=== PATIENT | female | born 1940 | race Caucasian/White ===

== ENCOUNTER 2025-01-29 17:59 | Emergency (ER) | payer MEDICARE, SELFPAY ==
[2025-01-29 18:23] VITALS: BP 200/85; PULSE 76; RESP 18; TEMP 36.9; O2SAT 98
--- NOTE | 2025-01-29 18:34 | CRLHL7_ITS ---
For Patients: As a result of the Century Cures Act, medical imaging exams and procedure reports are released immediately into your electronic medical record. You may view this report before your referring provider. If you have questions, please contact your health care provider. Indication: Balance issues, vision changes Technique: Noncontrast CT through the head with multiplanar reformats Comparison: None Findings: Brain: No acute hemorrhage. No acute infarct. No significant mass effect or midline shift. No gross evidence of a mass lesion or cerebral edema. Moderate chronic senescent disease. Ventricles: No acute abnormality appreciated. Orbits, sinuses, mastoids: No acute abnormality appreciated. Calvarium and soft tissues: No acute abnormality appreciated. Impression: No acute abnormality appreciated. Please note that all CT scans at this facility use dose modulation, iterative reconstruction, and/or weight-based dosing when appropriate to reduce radiation dose to as low as reasonably achievable. Dictated by Stephan Dye MD @ 01/29/2025 7:51:28 PM (Electronically Signed)
--- NOTE | 2025-01-29 18:38 | ED_ITS ---
HPI - General Adult General Time Seen by Provider: 18:38 Date Seen: 01/29/25 Chief complaint: Dizziness/Vertigo Stated complaint: Strips in vision, tipsy, dizzy Time Seen by Provider: 01/29/25 18:36 Source: patient, RN notes reviewed and old records reviewed Mode of arrival: ambulatory Limitations: no limitations History of Present Illness HPI narrative: This 84-year-old female is ambulatory into the ER with concern of an episode that happened last night. She saw little white strips are diagonal lying on a background, states she saw them with both eyes last night. When this happened, she was feeling unsteady, wobbly, had to hang on to walk. She noticed this may be around 9 or 930, sat up in her craft room chair tell about 10 30 and then went to bed. She did wake up multiple times the night to use the restroom, symptoms were gone. She had glaucoma laser surgery December 16, went to the eye doctor today. She went to Dr. Rollins in [place], he reassured her that there was nothing with her eyes. She could not get into her primary care provider until Monday. She is asymptomatic at this time, does not feel unsteady with her gait, no dizziness, no visual changes. She has hypertension, baseline takes amlodipine 2.5 mg and atenolol 25 mg. Blood pressure reviewing clinic visit show 0132/70, 138/70, 152/72, 128/64. Last blood pressure check was on August 12. She did not feel any sense of palpitation or irregular heartbeat but when this was happening she states she felt a little chest heaviness, she believes she was probably just worried and anxious. Her chart shows hypertension, varicose veins, hyperlipidemia, cataracts, chronic kidney disease stage 3. Patient has no headache with these symptoms. No history of migraine headaches. Related Data Home Medications ?Medication ?Instructions ?Recorded ?Confirmed amlodipine 2.5 mg tablet 2.5 mg PO DAILY 01/29/25 atenolol 25 mg tablet 25 mg PO DAILY 01/29/2501/09 Allergies Allergy/AdvReac Type Severity Reaction Status Date / Time No Known Drug Allergies Allergy Verified 01/29/25 19:41 Review of Systems Status of ROS: Reports: 6 or more systems reviewed and unremarkable except as noted in History and below PFSH PFSH Social History Smoking Status: Never smoker How often do you have a drink containing alcohol: never AUDIT-C Alcohol total score: 0 Non-prescribed substance use: denies use Exam Const: Vital Signs, click to edit/add: Vital Signs - 24 hr 01/29/25 18:23 Temperature 98.4 F Pulse Rate [Pulse Oximeter] 76 Respiratory Rate 18 Blood Pressure [Ri ght Upper Arm] 200/85 H Pulse Oximetry 98 Oxygen Delivery Me thod Room Air This 84-year-old female is alert, interactive, no apparent distress. She is sitting up on the edge of the exam bed in room 6. Pupils equal round reactive, sclera clear, extraocular muscles intact, visual key normal by confrontation. Symmetric facial function, speech normal. Neck thin, no jugular venous distension, no masses or adenopathy. Lungs are clear, good air entry, no wh eezing crackles, no tachypnea, no accessory muscle use. CV regular rate and rhythm, no murmur, normal S1-S2. Her strength is 5 5 and symmetric, she has normal gait, normal light touch sensation. There is no dysmetria, no tremors. Documenting provider has reviewed patient's vital signs: yes Course Course ED Course: This 84-year-old female had a spell where she is reporting bilateral visual changes as well as feeling of unsteadiness/disequilibrium in her gait. Symptoms have resolved at this time. She is hypertensive here. Will proceed with CT imaging of her head and then CT angio of her head neck. Will obtain EKG in baseline labs. Will talk to Neurology. Reevaluation(s) Time of Reevaluation #1: 21:39 Reevaluation #1: Did review with patient my conversation with the neurologist. Plan will be to discharge to home. Her blood pressures have come down and are not elevated in longer. Her most recent was 140 over 80s. Consultations Consultation #1: Have reviewed case with stroke neurologist at [facility] Dr. Posadas. She and I did review the imaging. 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 At 84, she is already by past imminent issues with this. It becomes a non issue in the older population. Patient is not known to have migraine headaches before. She does think that this might be an or phenomenon without the migraine, that can be more common as patient's age, they can have the aura without headache. If her pressure was remaining elevated in she had ongoing symptoms, she would consider PRESS but patient's blood pressure has come down and she has not had symptoms since last night. She thinks patient can discharge to home with the caveats that if she has recurrent symptoms, to return for evaluation. Time: 21:30 Vital Signs Vital signs: Initial Vital Signs Temperature 98.4 F 01/29/25 18:23 Temperature Source Temporal Artery Scan 01/29/25 18:23 Pulse Rate 76 01/29/25 18:23 Respiratory Rate 18 01/29/25 18:23 Blood Pressure 200/85 H 01/29/25 18:23 Blood Pressure Mean 123 H 01/29/25 18:23 Blood Pressure Position Sitting 01/29/25 18:23 Pulse Oximetry 98 01/29/25 18:23 Oxygen Delivery Method Room Air 01/29/25 18:23 Vital Signs Temperature 98.4 F 01/29/25 18:23 Pulse Rate 76 01/29/25 18:23 Respiratory Rate 18 01/29/25 18:23 Blood Pressure 200/85 H 01/29/25 18:23 Pulse Oximetry 98 01/29/25 18:23 Oxygen Delivery Method Room Air 01/29/25 18:23 Temperature 98.4 F 01/29/25 18:23 Pulse Rate 76 01/29/25 18:23 Respiratory Rate 18 01/29/25 18:23 Blood Pressure 200/85 H 01/29/25 18:23 Pulse Oximetry 98 01/29/25 18:23 Oxygen Delivery Method Room Air 01/29/25 18:23 Medical Decision Making Lab Data Lab results reviewed: Yes I reviewed the patient's lab results Labs: Lab Results 01/29/25 01/29/25 Range/Units 18:50 19:06 WBC 5.94 (4.50-11.00) K/uL RBC 4.21 (4.00-5.20) m/uL Hgb 12.5 (12.0-16.0) gm/dL Hct 38.7 (33.0-51.0) % MCV 92 (80-100) fL MCH 30 (26-34) pg MCHC 32 (32-36) gm/dL RDW Coeff of Daniel 13.0 (11.5-15.5) % Plt Count 248 (140-440) K/uL Neut % (Auto) 56.2 (42.0-72.0) % Lymph % (Auto) 32.8 (20-44) % Larimer % (Auto) 7.6 (0.0-11.0) % Eos % (Auto) 2.7 (0.0-7.0) % Baso % (Auto) 0.7 (0.0-3.0) % Neut # (Auto) 3.34 (1.7-7.0) K/uL Lymph # (Auto) 1.95 (0.90-2.90) K/uL Larimer # (Auto) 0.50 (0.00-0.90) K/UL Eos # (Auto) 0.16 (0.00-0.50) K/uL Baso # (Auto) 0.04 (0.00-0.30) K/uL Abs Immat Gran (auto) 0.00 (0.00-0.30) K/uL Imm/Tot Granulo (auto) 0.0 % Sodium 137 (135-149) mmol/L Potassium 4.3 (3.6-5.1) mmol/L Chloride 99 (96-114) mmol/L Carbon Dioxide 28 (20-32) mmol/L Anion Gap 10 (7-15) mEq/L BUN 21 (7-30) mg/dL Creatinine 1.0 (0.5-1.5) mg/dL Estimated GFR 55 ml/min Glucose 107 (60-115) mg/dL Calcium 9.9 (8.4-10.6) mg/dL Total Bilirubin 0.5 (0.1-1.5) mg/dL AST 35 (12-35) U/L ALT 20 (4-35) U/L Alkaline Phosphatase 89 (40-150) U/L Troponin I < 0.01 (0.01-0.04) ng/mL C-Reactive Protein < 0.5 L (0.5-1.0) mg/dL NT-Pro-B Natriuret Pep 687 H (See Note) pg/mL Total Protein 7.7 (6.0-8.3) g/dL Albumin 4.6 (3.3-5.0) g/dL POC Creatinine 1.1 (0.6-1.3) mg/dl Imaging Data CT scan - head: Attestation: I have reviewed the pertinent imaging results. Radiologist's impression: Patient: SABA COELHO Facility:?[facility] Patient ID:?[id number] Site Patient ID:?[id number]. Site :?1940 Study:?CT-Head WITHOUT NON ACUTE-01/29/2025 7:45:50 PM Ordering Physician:?Willard Arnold Final Report: Indication: Balance issues, vision changes Technique: Noncontrast CT through the head with multiplanar reformats Comparison: None Findings: Brain: No acute hemorrhage. No acute infarct. No significant mass effect or midline shift. No gross evidence of a mass lesion or cerebral edema. Moderate chronic senescent disease. Ventricles: No acute abnormality appreciated. Orbits, sinuses, mastoids: No acute abnormality appreciated. Calvarium and soft tissues: No acute abnormality appreciated. Impression: No acute abnormality appreciated. Please note that all CT scans at this facility use dose modulation, iterative reconstruction, and/or weight-based dosing when appropriate to reduce radiation dose to as low as reasonably achievable. Dictated by Stephan Dye MD @ 01/29/2025 7:51:28 PM (Electronic Signature) CT- Other: Attestation: I have reviewed the pertinent imaging results. Radiologist's impression: Patient: SABA COELHO Facility:?[facility] Patient ID:?[id number] Site Patient ID:?[id number]. Site :?1940 Study:?CT-Head Angio 95CC ISOVUE 370 NON ACUTE-01/29/2025 7:46:27 PM Ordering Physician:?Willard Arnold Preliminary Report: Indication: Balance issues, vision changes Technique: CT angiogram of the head and neck following 95 mL Isovue 370 IV contrast. Multiplanar MIP images obtained. Comparison: None Findings: Preliminary report, full report to follow. Impression: CTA head: No acute abnormality appreciated. CTA neck: Mild irregularities of the bilateral cervical ICAs and vertebral arteries, appearance suggestive of FMD. There is a short segment of moderate angelica nosis involving the left V3 vertebral artery which could represent an age- indeterminate nonocclusive dissection, no comparison study available. Dictated by Stephan Dye MD @ 01/29/2025 8:16:52 PM Read by:?Stephan Dye MD @01/29/2025 8:16:57 PM ECG Data Attestation: I personally reviewed and interpreted this ECG as follows: (Normal sinus rhythm, 61 beats per minute. Artifact noted V4 through V6. No definitive ischemia or infarct noted.) Prior ECG tracings: not available for review Discharge Plan Discharge Clinical Impression: Binocular visual disturbance Patient Disposition: Home, Self-Care Condition: Stable Additional Instructions: If you have recurrent visual issues, do recommend that you return to the ER for re-evaluation. Continue to monitor your blood pressure at home. If your blood pressure is consistently above 140/90, you do need to follow up in clinic and have medications modified. Otherwise, continue with any recommendations are restrictions that you had from your glaucoma surgery. Prescriptions: No Action atenolol 25 mg tablet 25 mg PO DAILY amlodipine 2.5 mg tablet 2.5 mg PO DAILY Follow Up/Referrals: Provider,Not a Local [Primary Care Provider, Family Practice] Stand Alone Forms: Gradalisth Info Instructions
--- NOTE | 2025-01-29 18:49 | CT_ITS ---
Patient: SABA COELHO Facility:?[facility] Patient ID:?[id number] Site Patient ID:?[id number]. Site :?1940 Study:?CT-Head Angio 95CC ISOVUE 370 NON ACUTE-01/29/2025 7:46:27 PM Ordering Physician:Cristiana Arnold Final Report: DATE: 01/29/2025 CLINICAL HISTORY: Patient with imbalance and vision changes. TECHNIQUE: Standard helical CT image acquisition through the head and neck was performed after intravenous contrast bolus enhancement. 2D and 3D MIP images for post- processing were performed and interpreted on an independent workstation and 3D images were permanently archived. COMPARISON: CT same day. FINDINGS: The origins of the great vessels from the aortic arch are patent. The origin of the right vertebral artery is patent. The origin of the left vertebral artery is patent. The common carotid arteries are patent There is no stenosis at the origin of the right internal carotid artery. There is no stenosis at the origin of the left internal carotid artery. The rest of the cervical segments of the internal carotid arteries are patent up to their intracranial segments. The intracranial segments of the internal carotid arteries are patent. The vertebral artery is dominant. The cervical segments of the vertebral arteries are patent. The intracranial segments of the vertebral arteries are patent, with mild narrowing on the left at the level of C2 due to degenerative changes. The middle cerebral arteries are normal without aneurysm or proximal occlusion identified. The anterior cerebral arteries are normal without aneurysm or proximal occlusion identified. The anterior communicating artery is well visualized and appears normal. The basilar artery is normal without aneurysm or occlusion. The posterior cerebral arteries are normal without aneurysm or proximal occlusion. There is normal opacification of major intracranial venous structures. The visualized lung apices are unremarkable The thyroid gland is unremarkable. The soft tissues of the neck are unremarkable. There are degenerative changes in the cervical spine. IMPRESSION: Patent cervical and proximal intracranial vasculature. Please note that all CT scans at this facility use dose modulation, iterative reconstruction, and/or weight-based dosing when appropriate to reduce radiation dose to as low as reasonably achievable. Dictated by Maricarmen Daniel MD @ 01/29/2025 10:59:40 PM (Electronic Signature)
--- NOTE | 2025-01-29 18:49 | CT_ITS ---
Patient: SABA COELHO Facility:?[facility] Patient ID:?[id number] Site Patient ID:?[id number]. Site :?1940 Study:?CT-Neck Angio Angio 95CC ISOVUE 370 NON ACUTE-01/29/2025 7:46:52 PM Ordering Physician:Cristiana Arnold Final Report: DATE: 01/29/2025 CLINICAL HISTORY: Patient with imbalance and vision changes. TECHNIQUE: Standard helical CT image acquisition through the head and neck was performed after intravenous contrast bolus enhancement. 2D and 3D MIP images for post- processing were performed and interpreted on an independent workstation and 3D images were permanently archived. COMPARISON: CT same day. FINDINGS: The origins of the great vessels from the aortic arch are patent. The origin of the right vertebral artery is patent. The origin of the left vertebral artery is patent. The common carotid arteries are patent There is no stenosis at the origin of the right internal carotid artery. There is no stenosis at the origin of the left internal carotid artery. The rest of the cervical segments of the internal carotid arteries are patent up to their intracranial segments. The intracranial segments of the internal carotid arteries are patent. The vertebral artery is dominant. The cervical segments of the vertebral arteries are patent. The intracranial segments of the vertebral arteries are patent, with mild narrowing on the left at the level of C2 due to degenerative changes. The middle cerebral arteries are normal without aneurysm or proximal occlusion identified. The anterior cerebral arteries are normal without aneurysm or proximal occlusion identified. The anterior communicating artery is well visualized and appears normal. The basilar artery is normal without aneurysm or occlusion. The posterior cerebral arteries are normal without aneurysm or proximal occlusion. There is normal opacification of major intracranial venous structures. The visualized lung apices are unremarkable The thyroid gland is unremarkable. The soft tissues of the neck are unremarkable. There are degenerative changes in the cervical spine. IMPRESSION: Patent cervical and proximal intracranial vasculature. Please note that all CT scans at this facility use dose modulation, iterative reconstruction, and/or weight-based dosing when appropriate to reduce radiation dose to as low as reasonably achievable. Dictated by Maricarmen Daniel MD @ 01/29/2025 11:00:13 PM (Electronic Signature)
--- OUTSIDE RECORDS SUMMARY | 2025-01-29 19:05 | XMS_ITS | Patient Health Record ---
Author Organization [facility] Address [address] [place] [address] Care Team Providers Care Radiology Technologist Name Role Phone Bellamirella Leslie Primary Care Provider HEMALATHA Montejo III Unavailable [phone] None, None Unavailable Unavailable Allergies Allergen (clinical drug ingredient) Drug/Non Drug Allergy documented on EMR Reaction Allergy Type Onset Date Status Sulfa hives Drug Allergy Active Reason For Referral No Information Medications Medication SIG (Take, Route, Frequency, Duration) Notes Start Date End Date Status Atenolol 25 MG Tablet TAKE 1 TABLET BY M OUTH DAILY. Oral; Duration: 90 Active amLODIPine Besylate 5 MG Tablet TAKE 1 TABLET BY MOUTH DAILY Oral; Duration: 90 Active Social History Tobacco Use: Social History Observation Description Date Details (start date - stop date) Never Smoker NA - NA Social History : Social Info Question Answer Notes How often do you consume alcohol? Answer: less th an 6 per week Recreational drug use Social Info Question Answer Notes Did you ever use recreational drugs? Answer: No Tobacco Use: Social Info Question Answer Notes Tobacco use/smoking Are you a nonsmoker Problems Problem Type SNOMED Code ICD Code Onset Dates Problem Status W/U Status Risk Notes Problem Epistaxis (305173539) Epistaxis (R04.0) Active confirmed Plan Of Treatment No Information Insurance Providers Payer Name Payer Address Payer Phone Subscriber Number Group Number Insured Name Patient Relationship to Insured Coverage Start Date Coverage End Date [employer]ARE [address] [address] [place], [place] [id number] Zaina Ibanez Self - patient is the insured Medical (General) History Medical History History ICD Code HTN cataracts Surgical History Surgery Date(Month/Year) GB removal 2007 Carpal tunnel 2009 Hospitalization History Reason Date(Month/Year) see above surgery
--- OUTSIDE RECORDS SUMMARY | 2025-01-29 19:05 | XMS_ITS | Clinical Summary ---
Author Organization [facility] Address [address] [place] [id number] Care Team Providers Care Credit Card Analyst Name Role Phone Leslie Kemp MD Primary Care Provider [phone] Manuel Manzano [phone] Allergies Active Allergy Reactions Criticality Noted Date Comments Sulfa (Sulfonamide Antibiotics) Hives 06/08 Medications calcium carbonate (Calcium 600) 600 mg calcium (1,500 mg) tablet Take 600 mg by mouth 2 times daily. 1 Active atenoloL (TENORMIN) 25 mg tabletIndications :Essential (primary) hypertension Take 1 Tablet (25 mg) by mouth once daily. 90 Tablet 4 5 Active Graduated Compression StockingsIndicati ons:Varicose veins of both lower extremities with inflammation For personal use. Length: thigh Strength: 20-30 mmHg 2 Each 3 5 Active amLODIPine 2.5 mg tabletIndications :Essential (primary) hypertension Take 1 Tablet (2.5 mg) by mouth once daily. 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 02/28/2018 Chronic kidney disease, stage 3 03/15/2012 Pure hypercholesterolemia 03/07/2012 Essential (primary) hypertension 03/09/2011 Resolved Problems Problem Noted Date Diagnosed Date Resolved Date HTN (hypertension) 08/12/2024 Impacted cerumen, right ear 07/25/2018 05/31/2023 Acute vaginitis 02/28/2018 05/31/2023 Hyperkalemia 07/27/2015 01/16/2025 Screen for colon cancer 05/29/2012 1012/2024 Overview (05/29/2012): Colonoscopy 05/2012 diverticulosis, no follow up needed Encounters Date Type Department Care Team Description 01/29/2025 Nurse Triage [facility] [address] [place] [phone] Leslie Kemp MD Vision Change 01/16/2025 9:00 AM CDT Phone Office Visit [facility] [id number] [place] [phone] Leslie Kemp MD Referral (Discuss colonoscopy referral (has been having issues with stomach)) 01/16/2025 Travel 01/13/2025 Telephone [facility] [id number] [place] [phone] Leslie Kemp MD Follow Up (Colonoscopy TE) 01/10/2025 Telephone [facility] [id number] [place] [phone] Leslie Kemp MD Screening (Colonscopy request) from Last 3 Months Immunizations Immunization Administration Dates Next Due COVID-19 vaccine ([employer] 30mcg/0.3mL) 12YO+ BIVALENT PF MDV 04/19/2022 COVID-19 vaccine ([employer] 30mcg/0.3mL) PF MDKhris 03/22/2021,07/02/2020,06/11/2020 Influenza Virus, Unspecified 01/16/2007 Influenza, High-dose Inactivated 024,01/01/2019,01/06/2018,01/02,01/10/2014 Influenza, High-dose Quadriv alent Inactivated 01/05/2023,01/06/2021,01/07/2020 Influenza, IIV3 (Age 6-35 mos) 01/03/2016,2014 Influenza, IIV3 (Age >=3 years) 12/06/2011,01/06,01/25/2008 Influenza, Inactivated AIIV4 (Age 65+ Years) Preserv Free 01/04/2022 Pneumococcal Poly,23-Valent (Pneumovax) 08/24/2020,06/18/2008 Pneumococcal conj 13-Valent (Prevnar 13) 05/15/2014 RSV, Recombinant ADJ Reconst ituted (Arexvy 120MCG/0.5mL) 06/20/2024 Td (Age >=7 Years) 10/21/2002 Tdap 11/26/2020,06/24/2009 Zoster (Shingrix-RZV, recombinant) 10/30/2019, Zoster (Zostavax-ZVL, live) 04/01/2010 Family History Medical History Relation Name Comments Diabetes Brother Skin cancer Brother Good Health Daughter Cancer-colon Mother Skin cancer Mother Irritable bowel syndrome Sister Skin cancer Sister Cerebral palsy Son Cancer-breast No Family History Relation Name Status Comments Brother Daughter Father (Age 33) Cause of d eath was MVA Mother (Age 95) Sister Son Social History Tobacco Use Types Packs/Day Years Used Date Smoking Tobacco: Never Smokeless Tobacco: Never Tobacco Cessation:Counseling Given: Yes Alcohol Use Standard Drinks/Week Comments Yes 7 (1 standard drink = 0.6 oz pur e alcohol) on occassion PHQ-2 Answer Date Recorded PHQ-2 TOTAL SCORE 0 06/04/2024 Social Connections Answer Date Recorded Do you often feel lonely or isolated from those around you? 0 08/12/2024 Financial Resource Strain Answer Date R ecorded Difficulty of Paying Living Expenses 3 08/12/2024 Difficulty of Paying Living Expenses Not on file 08/12/2024 Food Insecurity Answer Date Recorded Do you worry your food will run out before you are able to buy more? 1 08/12/2024 Transportation Needs Answer Date Record ed Does lack of transportation keep you from medica l appointments? 1 08/12/2024 Does lack of transportation keep you from work, meetings or getting things that you need? 1 08/12/2024 Housing Stability Answer Date Recorded What is your housing situation today? 1 08/12/2024 Utilities Answer Date Recorded Do you have trouble paying f or utilities (for example, heat, electricity, water, phone)? 1 08/12/2024 Comments No Sex and Gender Information Value Date Recorded Sex Assigned at Not on file Legal Sex Female 7:34 AM CLINICAL LABORATORY TECHNOLOGIST Gender Identity Not on file Sexual Orientation Not on file Obstetrics History Para Term AB IAB SAB Ectopic Multiple Livin g Live Births 4 2 Date Outcome GA Total Labor Labor/2nd/3rd Weight Sex Type Anes PTL Keisha A1 A5 Name Clin Para Para Last Filed Vital Signs Vital Sign Reading Time Taken Comments Blood Pressure 128/64 08/12/2024 10:09 AM CDT Pulse 64 08/12/2024 10:09 AM CDT Temperature 36.7 C (98 F) 03/27/2022 9:52 AM CLINICAL LABORATORY TECHNOLOGIST Respiratory Rate 17 03/27/2022 9:52 AM CLINICAL LABORATORY TECHNOLOGIST Oxygen Saturation 67% 06/20/2024 10:29 AM CDT Inhaled Oxygen Concentration - - Weight 50.5 kg (111 lb 6.4 oz) 08/12/2024 10:09 AM CDT Height 158.8 cm (5' 2.5) 06/04/2024 10:42 AM CS T Body Mass Index 20.05 06/04/2024 10:42 AM CLINICAL LABORATORY TECHNOLOGIST Plan of Treatment Upcoming Encounters Date Type Department Care Team (Late st Contact Info) Description 01/31/2025 10:30 AM CDT Office Visit [facility] [address] [place] [phone] Nicolasa Salamanca MD [address] [place] [id number] [place] [address] Health Maintenance Due Date Last Done Comments COVID-19 vaccine series ( season) 2024 05/03/2024, 03/07/2023, 04/19/2022, Additional history exists Influenza Vaccine (#1) 2024 , 01/04/2022, 01/01/2019, Additional history exists BMI (ht and wt on same day) for age 18+ 06/04/2025 06/04/2024, 05/31/2023, 04/19/2022, Additional history exists Depression screening for age 12+ 06/04/2025 06/04/2024 Medicare Wellness for age 65+ 06/05/2025 06/04/2024, 05/31/2023, 04/19/2022, Additional history exists Tetanus booster 11/26/2030 11/26/2020, 06/08, 10/21/2002 Zoster (shingles) series for age 50+ Completed 10/30/2019, 05/21/2019, 04/01/2010 Pneumococcal series for age 50+ Completed 08/24/2020, 05/15/2014, 06/18/2008 DEXA/DXA scan for age 65+ Completed 04/19/2022 RSV vaccine for adults or Completed 06/20/2024 Hepatitis B series for 19+ Aged Out N o longer eligible based on patient's age to complete this topic Procedures Procedure Name Priority Date/Time Associated Diagnosis Comments XR DXA BONE DENSITY 2 SITES AXIAL Routine 04/19/2022 11:11 AM CLINICAL LABORATORY TECHNOLOGIST Menopause from Last 3 Months or Most Recently Relevant to Health Maintenance Results * XR DXA BONE DENSITY 2 SITES AXIAL [39009.1] (04/19/2022 11:11 AM CLINICAL LABORATORY TECHNOLOGIST) Anatomical Region Laterality Modality Spine, HIPS, HIPL, HIPR Computed Radiography 04/19/2022 11:1 1 AM CLINICAL LABORATORY TECHNOLOGIST Impressions 04/19/2022 11:43 AM CLINICAL LABORATORY TECHNOLOGIST NORMAL. Bone mineral density measurements are within normal limits using T score. Narrative 04/19/2022 11:43 AM CLINICAL LABORATORY TECHNOLOGIST For Patients: As a result of the Century Cures Act, medical imaging exams and procedure reports are released immediately into your electronic medical record. You may view this report before your referring provider. If you have questions, please contact your health care provider. EXAM: XR DXA BONE DENSITY 2 SITES AXIAL LOCATION: [facility] DATE/TIME: 04/19/2022 11:11 AM INDICATION: I. other (screening-at minimum one option in 2-5 must be selected) - z13.820 Menopause COMPARISON: 03/10/2011 TECHNIQUE: Dual-energy x-ray absorptiometry performed with routine technique. FINDINGS: Lumbar Spine: L1-L4: BMD: 1.4-5 g/cm2. T-score: 2.0. Z-score: 4.2 RIGHT Hip Total: BMD: 1.067 g/cm2. T-score: 0.5. Z-score: 2.9 RIGHT Hip Femoral neck: BMD: 1.028 g/cm2. T-score: -0.1. Z-score: 2.4 LEFT Hip Total: BMD: 1.075 g/cm2. T-score: 0.5. Z-score: 2.9 LEFT Hip Femoral neck: BMD: 1.015 g/cm2. T-score: -0.2. Z-score: 2.3 WHO Criteria: Normal: T score at or above -1 SD COMPARISON: There has been a 1.4% increase in lumbar spine BMD. There has been a -5.9% decrease in bilateral hip BMD. FRAX Results: 10 year probability of major osteoporotic fracture is 8.1%, and of hip fracture is 1.4%, based on left femoral neck BMD. RECOMMENDATIONS: Consider treatment if major osteoporotic fracture score is greater than or equal to 20%. Consider treatment if hip fracture score is greater than or equal to 3%. Procedure Note Brynn Gruber MD - 04/19/2022 For Patients: As a result of the Century Cures Act, medical imagingexams and procedure reports are released immediately into your electronicmedical record. You may view this report before your referring provider.If you have questions, please contact your health care provider. EXAM: XR DXA BONE DENSITY 2 SITES AXIAL LOCATION: [facility] DATE/TIME: 04/19/2022 11:11 AM INDICATION: I. other (screening-at minimum one option in 2-5 must beselected) - z13.820 Menopause COMPARISON: 03/10/2011 TECHNIQUE: Dual-energy x-ray absorptiometry performed with routinetechnique. FINDINGS: Lumbar Spine: L1-L4: BMD: 1.4-5 g/cm2. T-score: 2.0. Z-score: 4.2 RIGHT Hip Total: BMD: 1.067 g/cm2. T-score: 0.5. Z-score: 2.9 RIGHT Hip Femoral neck: BMD: 1.028 g/cm2. T-score: -0.1. Z-score: 2.4 LEFT Hip Total: BMD: 1.075 g/cm2. T-score: 0.5. Z-score: 2.9 LEFT Hip Femoral neck: BMD: 1.015 g/cm2. T-score: -0.2. Z-score: 2.3 WHO Criteria: Normal: T score at or above -1 SD COMPARISON: There has been a 1.4% increase in lumbar spine BMD. There hasbeen a -5.9% decrease in bilateral hip BMD. FRAX Results: 10 year probability of major osteoporotic fracture is 8.1%,and of hip fracture is 1.4%, based on left femoral neck BMD. RECOMMENDATIONS: Consider treatment if major osteoporotic fracture score is greater than orequal to 20%. Consider treatment if hip fracture score is greater than orequal to 3%. IMPRESSION: NORMAL. Bone mineral density measurements are within normal limits using Tscore. Leslie Kemp MD DEXA Final Resu lt from Last 3 Months or Most Recently Relevant to Health Maintenance Insurance MEDICARE PART A HB ONLY BLUE [employer]OSS MEDICARE ADVANTAGE Advance Directives * Full Code (Latest Code Status on File) Date Activated Date Inactivated Comments 06/26/2009 12:20 PM 06/26/2009 6:23 PM Care Teams Credit Card Analyst Relationship Specialty [place] [address] [place] [address] PCP - General Family Practice 09/22/13 Manuel Manzaon [address] [address] Dermatology Dermatology 03/30/21
[2025-01-29 19:20] LABS: Hematocrit* 38.7 % (33.0-51.0); Hemoglobin* 12.5 gm/dL (12.0-16.0); Immature Granulocytes Abs Auto 0.00 K/uL (0.00-0.30); Immature Granulocytes Pct Auto 0.0 %; Lymphocytes Absolute Auto 1.95 K/uL (0.90-2.90); Mean Corpuscular HGB Conc 32 gm/dL (32-36); Mean Corpuscular Hemoglobin 30 pg (26-34); Mean Corpuscular Volume 92 fL (80-100); RDW Coefficient of Variation % 13.0 % (11.5-15.5); Red Blood Count* 4.21 m/uL (4.00-5.20); White Blood Count* 5.94 K/uL (4.50-11.00)
[2025-01-29 19:21] LABS: Slide Review Reflex No
[2025-01-29 19:37] LABS: Creatinine, Point-of-Care* 1.1 mg/dl (0.6-1.3)
[2025-01-29 19:39] LABS: Albumin* 4.6 g/dL (3.3-5.0); Chloride* 99 mmol/L (96-114); Potassium* 4.3 mmol/L (3.6-5.1); Sodium* 137 mmol/L (135-149)
[2025-01-29 19:41] LABS: Blood Urea Nitrogen* 21 mg/dL (7-30); Creatinine* 1.0 mg/dL (0.5-1.5); Estimated Glomerular Filt Rate 55 ml/min
[2025-01-29 19:42] LABS: Alanine Aminotransferase* 20 U/L (4-35); Alkaline Phosphatase* 89 U/L (40-150); Anion Gap 10 mEq/L (7-15); Aspartate Amino Transferase* 35 U/L (12-35); Bilirubin Total* 0.5 mg/dL (0.1-1.5); Carbon Dioxide* 28 mmol/L (20-32); Total Protein* 7.7 g/dL (6.0-8.3)
[2025-01-29 19:43] LABS: Calcium* 9.9 mg/dL (8.4-10.6); Glucose* 107 mg/dL (60-115)
[2025-01-29 19:52] LABS: NT Pro B Type NatriureticPept* 687 pg/mL (See Note)
[2025-01-29 21:43] VITALS: BP 142/43; PULSE 65; RESP 18; TEMP 36.4; O2SAT 98
== END 2025-01-29 22:02 | disposition home or self-care (01) ==
PROVIDERS: Emergency Provider Family Medicine
DX: H53.30 Unspecified disorder of binocular vision (principal); R06.89 Other abnormalities of breathing
CPT/HCPCS: 36415; 70450; 70496; 70498; 80053; 82565; 83880; 84484; 85025; 86140; 93005; 99284; 99285; Q9967